=== PATIENT | male | born 1975 | race Two or more races ===

== ENCOUNTER → 2020-10-01 16:10 | Outpatient (CLI) | payer BC, SELFPAY ==
--- NOTE | 2020-10-01 16:35 | RAD_ITS ---
STUDY: X-RAY - LEFT SHOULDER REASON FOR EXAM: Male, 45 years old. LEFT SHOULDER PAIN. TECHNIQUE: 4 view(s) of the shoulder. COMPARISON: None. FINDINGS: Normal glenohumeral articulation. Normal acromioclavicular joint. Normal acromion. Normal humeral head and visualized proximal humerus. The soft tissue structures are unremarkable. Normal visualized pulmonary apex. RAD/Shoulder min 2 Views IMPRESSION: Normal x-ray examination of the shoulder. Electronically Signed: Az Ferrara MD at 16:53 EST Tel , Service support ,
[2020-10-01 17:31] LABS: Glucose 97 mg/dL (74-106)
[2020-10-01 17:34] LABS: Hemoglobin A1c 5.7 % (3.8-5.6)
[2020-10-03 06:09] LABS: Myoglobin, Serum 44 ng/mL (28-72)
[2020-10-03 16:08] LABS: Creatine Kinase MB 0 % (0-3); Creatine Kinase MM 100 % (97-100); Creatine Kinase,Total,Serum 170 U/L (49-439); Macro I 0 % (Not Observed); Macro II 0 % (Not Observed)
[2020-10-03 21:04] LABS: Creatine Kinase BB 0 % (0)
== END ==
PROVIDERS: PCP Nurse Practitioner; Visit Provider Nurse Practitioner
DX: R73.01 Impaired fasting glucose (principal); M25.512 Pain in left shoulder
CPT/HCPCS: 36415; 73030; 82550; 82552; 82947; 83036; 83874; 84484